=== PATIENT | female | born 1960 | race African-American/Black ===

== ENCOUNTER 2017-09-11 09:02 | Emergency (ER) | payer MEDICAID ==
[~2017-09-11] VITALS: Ht 165.1 cm; Wt 78.0 kg
[2017-09-11 09:17] VITALS: BP 178/104
[2017-09-11] MEDS ORDERED: AMLO5TAB4 PO (09:24)
[2017-09-11] MEDS ORDERED: IBUPROFEN 600MG TABLET PO ONE (11:45)
== END 2017-09-11 12:28 | disposition home or self-care (01) ==
LOC: ER 09:02
DX: H93.11 Tinnitus, right ear (principal); H91.91 Unspecified hearing loss, right ear; R42 Dizziness and giddiness; I10 Essential (primary) hypertension; Z88.5 Allergy status to narcotic agent
CPT/HCPCS: 99282